=== PATIENT | male | born 1985 | race Caucasian/White ===

== ENCOUNTER 2020-05-24 12:31 | Emergency (ER) | payer SELFPAY ==
[2020-05-24] MEDS ORDERED: LORAZEPAM INJ 2 MG/1 ML VIAL IV ONE ×3 (13:08→19:19)
--- NOTE | 2020-05-24 13:10 | ER Document Report ---
ED General - General Stated Complaint: POSSIBLE HALLUCINATIONS Time Seen by Provider: 05/24/20 12:38 - HPI Notes: Chief complaint: Altered mental status History of present illness: 34-year-old male with history of polysubstance abuse apparently recently released from detox living with his mother now transported here via EMS for evaluation of "possible seizure" and hallucinations. Patient is actively hallucinating and therefore an unreliable historian. Limited information available from EMS. It is my understanding that his mother is coming to the ED at this time and hopefully will be able to supplement history. Patient freely admits that he is used a wide array of substances in the past and has consumed heavy alcohol. States that he is not used any substances within the last week. Patient repeatedly tells me that he is concerned about the man in the next room who is making some unusual noises and that he feels that he may be threatening him. Patient denies any intent to harm himself. When I asked him about auditory and visual hallucinations he denies these but then looks into the corner of the room as though he is experiencing exactly the thing about which I am inquiring. - Related Data Allergies/Adverse Reactions: Penicillins Allergy (Verified 05/24/20 14:28) Past Medical History - General Information source: Patient, Emergency Med Personnel Cannot obtain history due to: Altered mental status - Social History Smoking Status: Current Some Day Smoker Frequency of alcohol use: Heavy Drug Abuse: Other - As per HPI Family History: Reviewed & Not Pertinent Patient has suicidal ideation: No Patient has homicidal ideation: No Psychiatric Medical History: Reports: Other - Polysubstance abuse Review of Systems - Review of Systems -: Yes ROS unobtainable due to patient's medical condition Physical Exam - Vital signs Vitals: Temp 98.9 F 05/24/20 12:31 Notes: GENERAL: Well-developed well-nourished male approximately stated age appearing anxious and exhibiting mild tremor. He seems to be very paranoid and is complaining about noise from patients in other rooms stating "the david next room may be dangerous to me". SKIN: Mildly diaphoretic. Good turgor no rashes. HEAD: Normocephalic atraumatic. EYES: PERRLA. EOMI. Conjunctivae and sclerae clear. EARS: CANALS AND TMS CLEAR. NOSE: CLEAR. MOUTH: Moist mucosa. Good dentition. No stridor or edema. No drooling. NECK: Supple. No masses or thyromegaly. No adenopathy. Carotids 2+ without bruits. No JVD. BACK: Symmetrical without tenderness. CHEST: Respirations unlabored. Breath sounds clear and symmetrical. HEART: Tachycardic. Regular rhythm. No murmur gallop or rub. ABDOMEN: Soft nontender without masses, organomegaly or rebound. Bowel sounds normally active. No bruits. GENITALIA: Deferred. EXTREMITIES: No edema. No calf tenderness. Cap refill less than 1.5 seconds. Dorsalis pedis and posterior tibial pulses 3+ and symmetrical. NEUROLOGICAL: MILD TREMOR. GCS 15. Alert and oriented x3. Fluent but occasi onally halting speech. Cranial nerves II through XII intact. Sensorimotor and cerebellar normal. Normal tone. PSYCHIATRIC: Odd somewhat frightened affect. Course - Re-evaluation Re-evalutation: 05/24/20 14:42 Supplemental history has been obtained from the patient's mother Nury Bradley whose telephone number is area code [phone]. She advises me that the patient is a graduate of [employer] with a undergraduate business degree and he apparently played college baseball there. States he abused alcohol heavily while he was in school and has subsequently had alcohol problems since graduation. He has not held a regular job in the last 3 years. Apparently had a significant episode of alcohol withdrawal about 2 years ago and at that time had multiple seizures. He is not maintained regular medical follo w-up since then. He apparently is not functioning well on his own and within the last month has moved into his mother's [facility] apartment locally having left his home in [place]. He has been exhibiting bizarre behavior intermittently since he has been staying with his mother very paranoid and having hallucinations. She took him to see [facility] for outpatient evaluation about 2 weeks ago. They put him on some medicine for sleep and a mood stabilizer and she says she was not given any specific diagnosis. She says that he has been drinking some beer since he has been staying with her. Is not aware of any other substance abuse. She denies any knowledge of any other type of medical problems in the past and specifically denies any known history of head injury or stroke. Radiologist reports low-density focus in central rachan area appears to be consistent with an old stroke. There are no acute changes noted on the head CT. Blood alcohol here was less than 10. Tox screen is remarkable only for benzodiazepine. Comprehensive metabolic profile is remarkable for low potassium of 3.2. He is getting an IV banana bag at this time. We also note on his metabolic profile that he has elevation of transaminases suggestive of some chronic alcoholic hepatitis. Psychiatric consult is pending. My suspicion is that he has alcohol withdrawal syndrome. 05/24/20 14:46 - Vital Signs Vital signs: Temp Pulse Resp BP Pulse Ox 98.9 F 05/24/20 12:31 - Laboratory Result Diagrams: 05/24/20 12:42 05/24/20 12:42 Laboratory results interpreted by me: 05/24/20 05/24/20 05/24/20 12:42 12:42 12:42 RDW 14.8 H Plt Count 102 L Seg Neuts % (Manual) 84 H Lymphocytes % (Manual) 5 L Abs Lymphs (Manual) 0.4 L Sodium 133.8 L Potassium 3.3 L Carbon Dioxide 20 L Glucose 132 H AST 64 H ALT 78 H Urine Protein 100 H Urine Glucose (UA) >=500 H Urine Ketones TRACE H Urine Blood SMALL H Salicylates < 1.0 L Acetaminophen < 10 L - EKG Interpretation by Me Additional EKG results interpreted by me: 05/24/20 13:13 Twelve-lead EKG reviewed by me contemporaneously: 1246 hrs. Indication for study: Altered mental status Rhythm: Sinus tachycardia Rate: 106 Intervals: Normal QRS axis: +[address]/T wave changes: None Comparison with prior tracing: None Interpretation: Sinus tachycardia Discharge - Discharge Clinical Impression: Acute psychosis Disposition: PSYCH HOSP/UNIT
[2020-05-24 13:20] LABS: HEMATOCRIT 42.8 % (37.9-51.0); MEAN CORPUSCULAR HEMOGLOBIN 31.2 pg (27.0-33.4); MEAN CORPUSCULAR HGB CONC 35.2 g/dL (32.0-36.0); MEAN CORPUSCULAR VOLUME 89 fl (80-97); PLATELET COUNT 102 10^3/uL (150-450); RED BLOOD COUNT 4.83 10^6/uL (4.35-5.55); RED CELL DISTRIBUTION WIDTH 14.8 % (11.5-14.0); WHITE BLOOD COUNT 8.4 10^3/uL (4.0-10.5)
[2020-05-24 13:26] LABS: ALCOHOL < 10 mg/dL (NONE DETECTED); ALKALINE PHOSPHATASE 50 U/L (38-126); ANION GAP 16 (5-19); ASPARTATE AMINO TRANSFERASE 64 U/L (17-59); BILIRUBIN,DIRECT 0.3 mg/dL (0.0-0.4); BILIRUBIN,TOTAL 0.9 mg/dL (0.2-1.3); BLOOD UREA NITROGEN 9 mg/dL (7-20); CALCIUM 9.4 mg/dL (8.4-10.2); CARBON DIOXIDE 20 mmol/L (22-30); CHLORIDE 98 mmol/L (98-107); GLUCOSE 132 mg/dL (75-110); POTASSIUM 3.3 mmol/L (3.6-5.0); TOTAL PROTEIN 6.5 g/dL (6.3-8.2)
[2020-05-24 13:27] LABS: ACETAMINOPHEN < 10 ug/mL (10-30); SALICYLATE < 1.0 mg/dL (2.0-20.0)
[2020-05-24 13:40] LABS: ABSOLUTE LYMPHOCYTES# (MANUAL) 0.4 10^3/uL (0.5-4.7); ABSOLUTE MONOCYTES # (MANUAL) 0.9 10^3/uL (0.1-1.4); ANISOCYTOSIS SLIGHT; BASOPHILS % (MANUAL) 0 % (0-2); EOSINOPHILS % (MANUAL) 0 % (0-6); LYMPHOCYTES % (MANUAL) 5 % (13-45); MONOCYTES % (MANUAL) 11 % (3-13); PLATELET COMMENT DECREASED; SEGMENTED NEUTROPHILS % (MAN) 84 % (42-78); TOTAL CELLS COUNTED 100
[2020-05-24 13:41] LABS: PLATELET LARGE PRESENT; POLYCHROMASIA SLIGHT; TEAR DROP CELLS SLIGHT
[2020-05-24 14:03] LABS: AMORPHOUS SEDIMENT,URINE 1+ /HPF; APPEARANCE,URINE TURBID; BILIRUBIN,URINE NEGATIVE (NEGATIVE); COLOR,URINE YELLOW; GLUCOSE, URINE >=500 mg/dL (NEGATIVE); KETONES,URINE TRACE mg/dL (NEGATIVE); LEUKOCYTE ESTERASE,URINE NEGATIVE (NEGATIVE); NITRITE,URINE NEGATIVE (NEGATIVE); PROTEIN,URINE 100 mg/dL (NEGATIVE); URINE SPECIFIC GRAVITY 1.017; UROBILINOGEN,URINE NEGATIVE mg/dL (<2.0)
[2020-05-24 14:10] LABS: URINE AMPHETAMINES SCREEN NEGATIVE; URINE BARBITURATES SCREEN NEGATIVE; URINE COCAINE SCREEN NEGATIVE; URINE MARIJUANA (THC) SCREEN NEGATIVE; URINE METHADONE SCREEN NEGATIVE; URINE PHENCYCLIDINE SCREEN NEGATIVE
[2020-05-24 14:13] LABS: URINE BENZODIAZEPINES SCREEN UNCONFIRMED POSITIVE
--- NOTE | 2020-05-24 14:17 | RADIOLOGY REPORT (SQ) ---
EXAM DESCRIPTION: CT HEAD WITHOUT IMAGES COMPLETED DATE/TIME: 05/24/2020 2:05 pm REASON FOR STUDY: Altered mental status COMPARISON: None. TECHNIQUE: Axial images acquired through the brain without intravenous contrast. Images reviewed wi th bone, brain and subdural windows. Additional sagittal and coronal reconstructions were generated. Images stored on PACS. All CT scanners at this facility use dose modulation, iterative reconstruction, and/or weight based d osing when appropriate to reduce radiation dose to as low as reasonably achievable (ALARA). [facility]: Dose Right [facility]: CareDose [facility]: Dose Right [facility]: Teradose 4D [facility]: Smart Loogla RADIATION DOSE: CT Rad equipment meets quality standard of care and radiation dose reduction techniq ues were employed. CTDIvol: 53.2 mGy. DLP: 991 mGy-cm. mGy. LIMITATIONS: None. FINDINGS: VENTRICLES: Normal size and contour. CEREBRUM: No masses. No hemorrhage. No midline shift. No evidence for acute infarction. Normal gra y/white matter differentiation. No areas of low density in the white matter. CEREBELLUM: 7 mm focus of low attenuation in the central jess, likely an old infarct. EXTRAAXIAL SPACES: No fluid collections. No masses. ORBITS AND GLOBE: No intra- or extraconal masses. Normal contour of globe without masses. CALVARIUM: No fracture. PARANASAL SINUSES: Mucus or serous retention cyst left maxillary sinus SOFT TISSUES: No mass or hematoma. OTHER: Findings discussed with Dr. 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 COMMENT: Quality ID # [id number]: Final reports with documentation of one or more dose reduction techniques (e.g., Automated exposure control, adjustment of the mA and/or kV according to patient size, use of iterative reconstruction technique) TECHNICAL DOCUMENTATION: JOB ID: [id number] 2010 alike- All Rights Reserved Reading location - IP/workstation name: [id number]
[2020-05-24] MEDS ORDERED: BUSPIRONE HCL 10 MG TABLET PO STA (15:27)
[2020-05-24] MEDS ORDERED: HALOPERIDOL LACTATE INJ 5 MG/1 ML VIAL IM ONE (15:28)
[2020-05-24] MEDS ORDERED: NORMAL SALINE 1000 ML 1,000 ML with POTASSIUM CHLORIDE 20 MEQ, MAGNESIUM SULFATE 8 MEQ,... IV SCH ×5 (18:00)
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
[2020-05-24] MEDS: HALOPERIDOL 5 MG TABLET PO SCH ×2 (19:24→22:06)
[2020-05-24] MEDS: VENLAFAXINE HCL 37.5 MG CAP.SR.24H PO SCH (19:28)
[2020-05-24] MEDS ORDERED: HALOPERIDOL LACTATE INJ 5 MG/1 ML VIAL IV ONE (19:32)
[2020-05-24] MEDS ORDERED: KETAMINE HCL INJ 500 MG/10 ML VIAL IV ONE (19:58)
--- NOTE | 2020-05-24 20:20 | EKG REPORT ---
SEVERITY:- BORDERLINE ECG - SINUS TACHYCARDIA BORDERLINE T ABNORMALITIES, INFERIOR LEADS : Confirmed by: Umu Chacon MD 24-May-2020 20:19:27
[2020-05-24] MEDS: LORAZEPAM INJ 2 MG/1 ML VIAL IV SCH (23:39)
[2020-05-25] MEDS ORDERED: HALOPERIDOL LACTATE INJ 5 MG/1 ML VIAL IV ONE (01:24)
[2020-05-25] MEDS: LORAZEPAM INJ 2 MG/1 ML VIAL IV SCH (02:00)
[2020-05-25] MEDS ORDERED: LORAZEPAM INJ 2 MG/1 ML VIAL IV ONE ×2 (03:33→11:45)
[2020-05-25] MEDS ORDERED: DIAZEPAM INJ 10 MG/2 ML DISP.SYRIN IV PRN (05:06)
[2020-05-25 07:31] LABS: ANION GAP 11 (5-19); BLOOD UREA NITROGEN 10 mg/dL (7-20); CALCIUM 9.3 mg/dL (8.4-10.2); CARBON DIOXIDE 26 mmol/L (22-30); CHLORIDE 102 mmol/L (98-107); GLUCOSE 84 mg/dL (75-110); POTASSIUM 3.4 mmol/L (3.6-5.0)
[2020-05-25] MEDS ORDERED: RINGERS SOLUTION,LACTATED 1,000 ML IV ONE (09:32)
[2020-05-25] MEDS ORDERED: METOPROLOL TARTRATE PF/INJ 5 MG/5 ML SDV IV ONE ×2 (09:33→10:50)
[2020-05-25] MEDS: HALOPERIDOL 5 MG TABLET PO SCH ×4 (11:41→22:06)
[2020-05-25] MEDS: VENLAFAXINE HCL 37.5 MG CAP.SR.24H PO SCH ×2 (11:53→17:54)
[2020-05-25] MEDS: BUSPIRONE HCL 10 MG TABLET PO SCH ×2 (12:27→17:53)
[2020-05-25] MEDS ORDERED: BENZTROPINE MESYLATE 1 MG TABLET PO ONE ×2 (15:03→19:15)
[2020-05-25] MEDS ORDERED: CLONIDINE 0.1 MG/24 HR PATCH.TDWK TD ONE ×2 (15:04→18:45)
--- NOTE | 2020-05-25 15:10 | ER Document Report ---
Doctor's Note Notes: 05/25/20 15:07 The patient was hypertensive and tachycardic today. He was generally confused, but could carry on a conversation. His blood pressure and heart rate came down with metoprolol and IV fluids. Reviewing his lab work found that he did have an elevated CK at 814. Psych recommendations were to place the patient on Haldol 5 mg twice daily, Cogentin 1 mg once daily, Effexor 37.5 mg twice daily, BuSpar 5 mg twice daily, and add a clonidine transdermal patch 0.1 mg/hr. There is hope that this will keep his heart rate and blood pressure under control. I will also put the patient on oral potassium supplements for the next 2 days due to a slightly low potassium when he came in.
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
[2020-05-25] MEDS: POTASSIUM CHLORIDE 10 MEQ TABLET.ER PO SCH ×2 (17:54→18:16)
[2020-05-26 00:37] VITALS: BP 155/87
[2020-05-26] MEDS: POTASSIUM CHLORIDE 10 MEQ TABLET.ER PO SCH (10:04)
[2020-05-26] MEDS: BUSPIRONE HCL 10 MG TABLET PO SCH (10:05)
[2020-05-26] MEDS: VENLAFAXINE HCL 37.5 MG CAP.SR.24H PO SCH (10:05)
[2020-05-26] MEDS: HALOPERIDOL 5 MG TABLET PO SCH (10:06)
== END 2020-05-26 14:05 | disposition home or self-care (01) ==
LOC: ER 12:31
DX: F23 Brief psychotic disorder (principal); R44.3 Hallucinations, unspecified; F19.10 Other psychoactive substance abuse, uncomplicated; R03.0 Elevated blood-pressure reading, without diagnosis of hypertension; R00.0 Tachycardia, unspecified; Z88.0 Allergy status to penicillin
CPT/HCPCS: 93005; 96376 ×2; 99285; 96361; 96374; 96375 ×2; 36415; 80307 ×4; 82550; 85025; 80048; 80053; 81001; 70450; 93010; J3360; J3490 ×6; J1630 ×2; J3475; J2060 ×2; J3480; J3411; J7030; J7120